=== PATIENT | female | born 1960 | race Caucasian/White ===

== ENCOUNTER → 2017-07-24 | Day surgery (SDC) | payer BC ==
[~2017-07-24] MED LIST: ATORVASTATIN CA20 MG PO; CARAFATE1 GM/10 ML PO; DEMULEN; FENTANYL CITRATE/PF 100MCG/2 ML INJ ONE; ISOSORBIDE DINI10 MG PO; JANUMET XR 50-1 EAC1 PO; LEXAPRO; LEXAPRO10 MG PO; LIDOCAINE HCL 2% LOCAL INJ 5 ML SDV VIAL INJ ONE; MAALOX525 MG/15 PO; METFORMIN; METOPROLOL SUCC25 MG PO; MIDAZOLAM HCL 2 MG/2 ML VIAL ONE; NEXIUM40 MG PO; NORVASC10 MG PO; PEPCID20 MG PO; PREVACID; PREVACID30 MG PO; PROPOFOL IV EMULSION 10 MG/ML 50 ML VIAL ONE; PROTONIX; PROTONIX40 MG PO; ZANTAC 7575 MG PO; [UNRECOGNIZED DRUG - OTHER] PO
--- NOTE | 2017-07-24 12:30 | Operative Report ---
DATE OF PROCEDURE: July 24, 2017 REFERRING PHYSICIAN: Keri Mendez MD PROCEDURES PERFORMED 1. Esophagogastroduodenoscopy with polypectomy and biopsies. 2. Colonoscopy with polypectomy and biopsies. INDICATIONS FOR EGD: Upper abdominal pain, heartburn. INDICATIONS FOR COLONOSCOPY: Colorectal cancer screening, intermittent diarrhea. MEDICATION: Patient was done under MAC. Please see anesthesiologist's note. PROCEDURE: With the patient in the left lateral decubitus position, the flexible fiberoptic Olympus gastroscope was introduced into the esophagus under direct visualization without any difficulty. There was some patchy erythema noted in the distal esophagus. There was a minute tongue of velvety red mucosa extending proximally from the GE junction that was biopsied to rule out Lerner's. The scope was then advanced with ease into the stomach. Mucosa overlying the antrum and the body revealed some patchy erythema and low-grade edema, and biopsies were obtained and sent to stain for H. pylori. A cluster of polyps was noted in the distal body of the stomach along the greater curvature, and that was removed per snare electrocautery. Pylorus appeared to be of normal contour and shape. It was intubated with ease, and the scope was advanced all the way to the 2nd portion of the duodenum. Biopsies were obtained from the proximal 2nd portion to rule out sprue. The mucosa overlying the duodenal bulb appeared to be within normal limits. The scope was then withdrawn back into the stomach and retroflexed. The mucosa overlying the fundus and cardia appeared to be within normal limits. The scope was then straightened out. It was subsequently withdrawn. Patient tolerated the procedure well. IMPRESSION 1. Distal esophagitis, mild. 2. Rule out Lerner's esophagus. 3. Gastritis, biopsied. Biopsies sent to stain for H. pylori. 4. Gastric polyps, distal body, snared. 5. Rule out sprue. PLAN: Follow up histology. Continue Protonix 40 mg 1 p.o. a.c. b.i.d. Add Carafate 1 gram p.o. a.c. t.i.d. and nightly. The patient was then turned around. After adequate lubrication of the anal canal, the flexible fiberoptic Olympus colonoscope was inserted into the rectum with ease and advanced all the way to the cecum. Mucosa overlying the cecum appeared to be within normal limits. The ileocecal valve was intubated, and the scope was advanced into the terminal ileum. Biopsies were obtained. The scope was then withdrawn back into the colon. It was then withdrawn slowly. One polyp was hot biopsied from the ascending colon. The transverse appeared to be within normal limits. There were some patchy mild inflammatory changes noted in the left colon. Random biopsies were obtained. An approximately 1-cm pedunculated polyp was removed per snare electrocautery from the proximal sigmoid, and the polypectomy site was hemoclipped prophylactically. The rectum appeared to be within normal limits. The scope was then retroflexed into the distal rectum. Small internal hemorrhoids were noted, none of which was actively bleeding. The scope was then straightened out. It was subsequently withdrawn. Patient tolerated the procedure well. IMPRESSION 1. Ascending colon polyp, hot biopsied. 2. Rule out mild, patchy, left-sided colitis. 3. Approximately 1-cm polyp in proximal sigmoid colon, snared, and polypectomy site was hemoclipped prophylactically. 4. Internal hemorrhoids, none actively bleeding. PLAN: Follow up histology. Initiate Bentyl 10 mg 1 p.o. t.i.d. and VSL #3 DS 1 p.o. daily. Patient might benefit from a followup colonoscopy in 3 years. Job#: [id number] cc:KERI MENDEZ MD
== END | disposition home or self-care (01) ==
LOC: OR 07:35
PROVIDERS: ATTEND Internal Medicine Gastroenterology
DX: K21.9 Gastro-esophageal reflux disease without esophagitis (principal); D12.2 Benign neoplasm of ascending colon; D12.5 Benign neoplasm of sigmoid colon; K31.7 Polyp of stomach and duodenum; K29.50 Unspecified chronic gastritis without bleeding; K59.00 Constipation, unspecified; K20.9 Esophagitis, unspecified; K64.8 Other hemorrhoids; K76.0 Fatty (change of) liver, not elsewhere classified; I47.1 Supraventricular tachycardia; E11.9 Type 2 diabetes mellitus without complications; Z68.30 Body mass index [BMI] 30.0-30.9, adult; Z88.2 Allergy status to sulfonamides; Z91.048 Other nonmedicinal substance allergy status; Z80.0 Family history of malignant neoplasm of digestive organs
CPT/HCPCS: 43239; 43251; 45384; 45385; 93005; J2001; J2250; 45378; 45380

== ENCOUNTER 2020-03-10 13:00 | Outpatient (RCR) | payer BC ==
[~2020-03-10 13:00] MED LIST changes: -FENTANYL CITRATE/PF 100MCG/2 ML INJ ONE; -LIDOCAINE HCL 2% LOCAL INJ 5 ML SDV VIAL INJ ONE; -MIDAZOLAM HCL 2 MG/2 ML VIAL ONE; -PROPOFOL IV EMULSION 10 MG/ML 50 ML VIAL ONE
== END 2020-03-16 ==
LOC: PT 13:00
PROVIDERS: ATTEND Neurological Surgery
DX: M50.120 Mid-cervical disc disorder, unspecified level (principal); M62.81 Muscle weakness (generalized)
CPT/HCPCS: 97139